=== PATIENT | male | born 1990 | race Caucasian/White ===

== ENCOUNTER 2018-03-26 15:18 | Emergency (ER) | payer OTHER ==
[~2018-03-26] VITALS: Ht 170.2 cm; Wt 102.5 kg
[~2018-03-26 15:18] MED LIST: BACTROBAN OINT22 GM TP; LOTRISONE CREAM45 GM TP; SEPTRA DS TABLE1 TAB PO
== END 2018-03-26 19:52 | disposition home or self-care (01) ==
LOC: ER 15:18
DX: B34.9 Viral infection, unspecified (principal)